=== PATIENT | male | born 1955 | race Caucasian/White ===

== ENCOUNTER → 2022-01-26 14:53 | Outpatient (BNVA) | payer OTHER, SELFPAY | PROVIDERS: Referring Provider Emergency Medicine Emergency Medical Services; Visit Provider Orthopaedic Surgery | DX: M25.552 Pain in left hip (principal); M16.12 Unilateral primary osteoarthritis, left hip | CPT/HCPCS: 73502 ==

== ENCOUNTER → 2022-03-10 08:30 | Outpatient (BNVA) | payer OTHER, SELFPAY | PROVIDERS: Referring Provider Emergency Medicine Emergency Medical Services; Visit Provider Anesthesiology Pain Medicine | DX: G89.29 Other chronic pain (principal); M48.062 Spinal stenosis, lumbar region with neurogenic claudication; M43.26 Fusion of spine, lumbar region; M51.16 Intervertebral disc disorders with radiculopathy, lumbar region; M79.604 Pain in right leg; M79.605 Pain in left leg; Z87.891 Personal history of nicotine dependence; Z79.891 Long term (current) use of opiate analgesic | CPT/HCPCS: 99205 ==

== ENCOUNTER → 2022-03-16 13:10 | Outpatient (BNVA) | payer OTHER, SELFPAY | PROVIDERS: PCP Emergency Medicine Emergency Medical Services; Visit Provider Anesthesiology Pain Medicine | DX: M48.062 Spinal stenosis, lumbar region with neurogenic claudication (principal); Z79.891 Long term (current) use of opiate analgesic; M47.816 Spondylosis without myelopathy or radiculopathy, lumbar region | CPT/HCPCS: 64493; 64494; 64495; J3490 ==

== ENCOUNTER 2022-03-19 07:34 | Day surgery (SDC) | payer OTHER, SELFPAY ==
[2022-03-17 12:23] VITALS: BMI 42.3
--- NOTE | 2022-03-19 07:58 | ANES.PREANE2 ---
Pre-Anesthetic Assessment Height/Weight: Height 1.88 m Weight 149.685 kg Preop Diagnosis: history of colon polyps Operation Date: 03/19/22 09:00 Proposed Procedures p Colonoscopy 76158/history of colon polyps Z89.010(Not Applicable) - Kilo Jarrell MD Familial anesthetic complications: none Was Beta Faisal taken within 24 hours: N/A Was Clonidine taken within 24 hours: N/A Last intake: > 8 hrs Social Tobacco (dips) and No alcohol Exam alert, oriented x 3, clear to auscultation bilaterally and regular rate & rhythm Airway Mallampati: Class IV Dentition: chipped Comments: Comments: full blankenship, small mouth opening Pulmonary Sleep Apnea CV/HEM Hypertension GI Gastroesophageal Reflux Disease Metabolic Diabetes Mellitus, Morbid Obesity and Thyroid Disease Anesthetic Plan ASA status: 3 Anesthesia: MAC Risk of > 500 ml blood loss (7ml/kg in children): No Medications/Allergies Home Medications Medication Instructions Recorded Confirmed Last Taken Type acetaminophen 325 mg capsule 325 mg PO QID PRN 03/10/22 03/17/22 Unknown History amlodipine 10 mg tablet 10 mg PO DAILY 03/10/22 03/17/22 Unknown History aspirin 81 mg chewable tablet 81 mg PO DAILY 03/10/22 03/17/22 Unknown History atorvastatin 80 mg tablet 80 mg PO DAILY 03/10/22 03/17/22 Unknown History cholecalciferol (vitamin D3) 75 75 mcg PO DAILY 03/10/22 03/17/22 Unknown History mcg (3,000 unit) tablet cyanocobalamin (vitamin B-12) 500 500 mcg PO DAILY 03/10/22 03/17/22 Unknown History mcg tablet folic acid 1 mg tablet 1 mg PO DAILY 03/10/22 03/17/22 Unknown History gabapentin 300 mg capsule 600 mg PO TID cap 03/10/22 03/17/22 Unknown History hydralazine 50 mg tablet 50 mg PO TID 03/10/22 03/17/22 Unknown History hydrochlorothiazide 50 mg tablet 50 mg PO DAILY 03/10/22 03/17/22 Unknown History hydrocortisone 2.5 % topical cream 1 applic TOPICAL TID PRN 03/10/22 03/17/22 Unknown History hydrophilic cream 1 applic TOPICAL DAILY PRN 03/10/22 03/17/22 Unknown History insulin NPH isoph U-100 human 100 25 unit SUBCUT QAM 03/10/22 03/17/22 Unknown History unit/mL (3 mL) subcutaneous pen (Novolin N Flexpen) levothyroxine 200 mcg capsule 200 mcg PO DAILY 03/10/22 03/17/22 Unknown History losartan 100 mg tablet 100 mg PO DAILY 03/10/22 03/17/22 Unknown History metformin 1,000 mg tablet 1,000 mg PO BID 03/10/22 03/17/22 Unknown History methocarbamol 500 mg tablet 500 mg PO TID 03/10/22 03/17/22 Unknown History omeprazole 20 mg capsule,delayed 20 mg PO DAILY 03/10/22 03/17/22 Unknown History release pioglitazone 30 mg tablet 30 mg PO DAILY 03/10/22 03/17/22 Unknown History tramadol 50 mg tablet 50 mg PO TID PRN #90 tab 03/10/22 03/17/22 Unknown Rx Allergies Allergy/AdvReac Type Severity Reaction Status Date / Time No Known Allergies Allergy Verified 03/16/22 13:33 [facility] Anesthesia Surgical History History of back surgery 2009 History of right hip replacement 2014 Family History Other Cancer Diabetes Denies family history of CAD (coronary artery disease) Dementia Chronic kidney disease (CKD) Stroke Social History Smoking and tobacco status: former smoker Alcohol intake: never Lives independently: Yes Household members: spouse, children and other Marital status: Data Anesthesia Cardiac Studies: No Data to Display
--- NOTE | 2022-03-19 08:20 | W.PM.OPSFHP ---
Same Day Surgery H&P Indication for Procedure/HPI DATE OF PROCEDURE: March 19, 2022 CHIEF COMPLAINT/INDICATIONFOR SURGICAL PROCEDURE: History of colon polyps PREOP DIAGNOSIS: history of colon polyps PLANNED PROCEDURE: Operation Date: 03/19/22 09:00 Proposed Procedures p Colonoscopy 39160/history of colon polyps Z89.010(Not Applicable) - Kilo Jarrell MD 01/04/22 This is a pleasant 66 years old gentleman had a colonoscopy about 10 years ago or so with questionable history of colon polyps.? Patient denies any bleeding per rectum or history of colon cancer.? Had a previous spine surgery back in 2009 which limit his activities and movability.? She denies unintentional weight loss. 03/19/2022 Patient comes today for surveillance colonoscopy ROS All systems have been reviewed negative except as for the above or per problem list. Medications/Allergies* Home Medications Medication Instructions Recorded Confirmed Type acetaminophen 325 mg capsule 325 mg PO QID PRN 03/10/22 03/19/22 History amlodipine 10 mg tablet 10 mg PO DAILY 03/10/22 03/19/22 History aspirin 81 mg chewable tablet 81 mg PO DAILY 03/10/22 03/19/22 History atorvastatin 80 mg tablet 80 mg PO DAILY 03/10/22 03/19/22 History cholecalciferol (vitamin D3) 75 75 mcg PO DAILY 03/10/22 03/19/22 History mcg (3,000 unit) tablet cyanocobalamin (vitamin B-12) 500 500 mcg PO DAILY 03/10/22 03/19/22 History mcg tablet folic acid 1 mg tablet 1 mg PO DAILY 03/10/22 03/19/22 History gabapentin 300 mg capsule 600 mg PO TID cap 03/10/22 03/19/22 History hydralazine 50 mg tablet 50 mg PO TID 03/10/22 03/19/22 History hydrochlorothiazide 50 mg tablet 50 mg PO DAILY 03/10/22 03/19/22 History hydrocortisone 2.5 % topical cream 1 applic TOPICAL TID PRN 03/10/22 03/19/22 History hydrophilic cream 1 applic TOPICAL DAILY PRN 03/10/22 03/19/22 History insulin NPH isoph U-100 human 100 25 unit SUBCUT QAM 03/10/22 03/19/22 History unit/mL (3 mL) subcutaneous pen (Novolin N Flexpen) levothyroxine 200 mcg capsule 200 mcg PO DAILY 03/10/22 03/19/22 History losartan 100 mg tablet 100 mg PO DAILY 03/10/22 03/19/22 History metformin 1,000 mg tablet 1,000 mg PO BID 03/10/22 03/19/22 History methocarbamol 500 mg tablet 500 mg PO TID 03/10/22 03/19/22 History omeprazole 20 mg capsule,delayed 20 mg PO DAILY 03/10/22 03/19/22 History release pioglitazone 30 mg tablet 30 mg PO DAILY 03/10/22 03/19/22 History Allergies/Adverse Reactions Allergy/AdvReac Type Severity Reaction Status Date / Time No Known Allergies Allergy Verified 03/19/22 08:21 Pertinent History/Comorbid Conditions* Surgical History (Updated 03/10/22 @ 11:38 by Abiel Knight MD) History of back surgery 2009 History of right hip replacement 2014 Family History (Updated 01/04/22 @ 15:06 by Marily De) Diabetes Cancer Denies family history of CAD (coronary artery disease) Dementia Chronic kidney disease (CKD) Stroke Social History Smoking and tobacco status: former smoker Alcohol intake: never Lives independently: Yes Household members: spouse, children and other Marital status: Pertinent Exam Findings alert, oriented x 3, regular rate & rhythm and procedure specific exam findings (Abdominal examination nontender nondistended soft) Recommendations Surgery/Procedure today ( Surveillance colonoscopy) Coding Level of Care Code Acute [employer] Manager for Sharon Sánchez
[2022-03-19] MEDS: sodium chloride 0.9% 1,000 ML 30 ML IV (08:24)
[2022-03-19 09:21] VITALS: BP 150/80; PULSE 70; RESP 18; TEMP 36.6; O2SAT 95
--- NOTE | 2022-03-19 15:56 | ANE.PACU2 ---
Inpatient post-anesthesia follow up: Airway intact: Yes Vital signs: Temperature 97.8 F Pulse Rate 70 Respiratory Rate 18 Blood Pressure 150/80 Pulse Oximetry 95 Oxygen Delivery Me thod Nasal Cannula Oxygen Flow Rate 3 Fraction of Inspir ed Oxygen Hydration adequate: Yes Nausea and vomiting: No Pain level: 1 Mental status: Baseline
== END 2022-03-19 09:52 | disposition home or self-care (01) ==
PROVIDERS: PCP Emergency Medicine Emergency Medical Services; Visit Provider Surgery
PROC: 0DJD8ZZ Inspection of Lower Intestinal Tract, Via Natural or Artificial Opening Endoscopic (ICD-10-PCS; CPT 45378; principal; 2022-03-19 09:00)
DX: Z12.11 Encounter for screening for malignant neoplasm of colon (principal); Z86.010 Personal history of colon polyps; D12.2 Benign neoplasm of ascending colon; D12.4 Benign neoplasm of descending colon; Z79.4 Long term (current) use of insulin; Z79.84 Long term (current) use of oral hypoglycemic drugs; Z83.3 Family history of diabetes mellitus; Z87.891 Personal history of nicotine dependence; K21.9 Gastro-esophageal reflux disease without esophagitis; I10 Essential (primary) hypertension; G47.30 Sleep apnea, unspecified; E11.9 Type 2 diabetes mellitus without complications; E66.01 Morbid (severe) obesity due to excess calories; Z68.41 Body mass index [BMI] 40.0-44.9, adult
CPT/HCPCS: 45380; 88305; J2704; J7030

== ENCOUNTER → 2022-03-29 12:07 | Outpatient (BNVA) | payer OTHER, SELFPAY | PROVIDERS: PCP Emergency Medicine Emergency Medical Services; Visit Provider Anesthesiology Pain Medicine | DX: M54.16 Radiculopathy, lumbar region (principal); M48.062 Spinal stenosis, lumbar region with neurogenic claudication; Z79.891 Long term (current) use of opiate analgesic; Z87.891 Personal history of nicotine dependence; M47.816 Spondylosis without myelopathy or radiculopathy, lumbar region | CPT/HCPCS: 64493; 64494; 64495; J3490 ==

== ENCOUNTER → 2022-04-13 09:29 | Outpatient (BNVA) | payer OTHER, SELFPAY | PROVIDERS: PCP Emergency Medicine Emergency Medical Services; Visit Provider Anesthesiology Pain Medicine | DX: M48.062 Spinal stenosis, lumbar region with neurogenic claudication (principal); M43.26 Fusion of spine, lumbar region; M51.16 Intervertebral disc disorders with radiculopathy, lumbar region; M79.604 Pain in right leg; M79.605 Pain in left leg; Z87.891 Personal history of nicotine dependence; Z79.891 Long term (current) use of opiate analgesic | CPT/HCPCS: 99214 ==

== ENCOUNTER → 2022-05-19 14:37 | Outpatient (BNVA) | payer OTHER, SELFPAY | PROVIDERS: PCP Emergency Medicine Emergency Medical Services; Visit Provider Anesthesiology Pain Medicine | DX: M48.062 Spinal stenosis, lumbar region with neurogenic claudication (principal); E11.9 Type 2 diabetes mellitus without complications; Z79.84 Long term (current) use of oral hypoglycemic drugs; Z79.4 Long term (current) use of insulin; Z79.891 Long term (current) use of opiate analgesic; Z87.891 Personal history of nicotine dependence; M47.816 Spondylosis without myelopathy or radiculopathy, lumbar region | CPT/HCPCS: 36416; 64635; 64636; 82962; J1030 ==

== ENCOUNTER → 2022-06-08 08:22 | Outpatient (BNVA) | payer OTHER, SELFPAY | PROVIDERS: PCP Emergency Medicine Emergency Medical Services; Referring Provider Emergency Medicine Emergency Medical Services; Visit Provider Podiatrist Foot & Ankle Surgery | DX: E11.8 Type 2 diabetes mellitus with unspecified complications (principal); E11.42 Type 2 diabetes mellitus with diabetic polyneuropathy; Z79.4 Long term (current) use of insulin; L85.3 Xerosis cutis; L60.3 Nail dystrophy; M21.41 Flat foot [pes planus] (acquired), right foot; M20.41 Other hammer toe(s) (acquired), right foot; M20.42 Other hammer toe(s) (acquired), left foot; M21.42 Flat foot [pes planus] (acquired), left foot | CPT/HCPCS: 99204 ==

== ENCOUNTER → 2022-06-16 14:12 | Outpatient (BNVA) | payer OTHER, SELFPAY | PROVIDERS: PCP Emergency Medicine Emergency Medical Services; Visit Provider Anesthesiology Pain Medicine | DX: Z01.812 Encounter for preprocedural laboratory examination (principal); M48.062 Spinal stenosis, lumbar region with neurogenic claudication; Z79.4 Long term (current) use of insulin; Z87.891 Personal history of nicotine dependence; Z79.891 Long term (current) use of opiate analgesic; M47.816 Spondylosis without myelopathy or radiculopathy, lumbar region; E11.9 Type 2 diabetes mellitus without complications | CPT/HCPCS: 36416; 64635; 64636; 82962; J1030 ==

== ENCOUNTER → 2022-07-06 10:48 | Outpatient (BNVA) | payer OTHER, SELFPAY | PROVIDERS: PCP Emergency Medicine Emergency Medical Services; Visit Provider Anesthesiology Pain Medicine | DX: M48.062 Spinal stenosis, lumbar region with neurogenic claudication (principal); M43.26 Fusion of spine, lumbar region; M51.16 Intervertebral disc disorders with radiculopathy, lumbar region; M79.604 Pain in right leg; M79.605 Pain in left leg; Z87.891 Personal history of nicotine dependence; Z79.891 Long term (current) use of opiate analgesic | CPT/HCPCS: 99213 ==

== ENCOUNTER → 2022-09-30 10:42 | Outpatient (BNVA) | payer OTHER, SELFPAY | PROVIDERS: PCP Emergency Medicine Emergency Medical Services; Visit Provider Anesthesiology Pain Medicine | DX: M48.062 Spinal stenosis, lumbar region with neurogenic claudication (principal); M51.16 Intervertebral disc disorders with radiculopathy, lumbar region; M43.26 Fusion of spine, lumbar region; M79.604 Pain in right leg; M79.605 Pain in left leg; Z87.891 Personal history of nicotine dependence | CPT/HCPCS: 99214 ==

== ENCOUNTER → 2022-10-05 08:26 | Outpatient (BNVA) | payer OTHER, SELFPAY | PROVIDERS: PCP Emergency Medicine Emergency Medical Services; Visit Provider Podiatrist Foot & Ankle Surgery | DX: E11.42 Type 2 diabetes mellitus with diabetic polyneuropathy (principal); M21.41 Flat foot [pes planus] (acquired), right foot; M20.41 Other hammer toe(s) (acquired), right foot; Z79.84 Long term (current) use of oral hypoglycemic drugs; Z79.4 Long term (current) use of insulin; M20.42 Other hammer toe(s) (acquired), left foot; M21.42 Flat foot [pes planus] (acquired), left foot | CPT/HCPCS: 11056; 11721 ==

== ENCOUNTER → 2023-01-18 10:28 | Outpatient (BNVA) | payer OTHER, SELFPAY | PROVIDERS: PCP Emergency Medicine Emergency Medical Services; Visit Provider Podiatrist Foot & Ankle Surgery | DX: E11.42 Type 2 diabetes mellitus with diabetic polyneuropathy (principal); L85.3 Xerosis cutis; L60.3 Nail dystrophy; M21.41 Flat foot [pes planus] (acquired), right foot; M21.42 Flat foot [pes planus] (acquired), left foot; M20.41 Other hammer toe(s) (acquired), right foot; M20.42 Other hammer toe(s) (acquired), left foot; Z79.4 Long term (current) use of insulin; Z79.84 Long term (current) use of oral hypoglycemic drugs | CPT/HCPCS: 11056; 11721 ==

== ENCOUNTER → 2023-01-27 09:35 | Outpatient (BNVA) | payer OTHER, SELFPAY | PROVIDERS: PCP Emergency Medicine Emergency Medical Services; Visit Provider Anesthesiology Pain Medicine | DX: M48.062 Spinal stenosis, lumbar region with neurogenic claudication (principal); M43.26 Fusion of spine, lumbar region; M51.16 Intervertebral disc disorders with radiculopathy, lumbar region; M25.552 Pain in left hip | CPT/HCPCS: 99213; 99214 ==

== ENCOUNTER → 2023-02-08 15:30 | Outpatient (BNVA) | payer OTHER, SELFPAY | PROVIDERS: PCP Emergency Medicine Emergency Medical Services; Visit Provider Orthopaedic Surgery | DX: M16.12 Unilateral primary osteoarthritis, left hip (principal) | CPT/HCPCS: 73502; 99213 ==

== ENCOUNTER → 2023-03-28 15:30 | Outpatient (BNVA) | payer OTHER, SELFPAY | PROVIDERS: PCP Emergency Medicine Emergency Medical Services; Visit Provider Internal Medicine Cardiovascular Disease | DX: R07.9 Chest pain, unspecified (principal); R06.02 Shortness of breath; I51.7 Cardiomegaly; Z98.890 Other specified postprocedural states; E78.00 Pure hypercholesterolemia, unspecified; I12.9 Hypertensive chronic kidney disease with stage 1 through stage 4 chronic kidney disease, or unspecified chronic kidney disease; N18.9 Chronic kidney disease, unspecified; E07.9 Disorder of thyroid, unspecified; E66.01 Morbid (severe) obesity due to excess calories; G47.33 Obstructive sleep apnea (adult) (pediatric); Z87.891 Personal history of nicotine dependence; Z68.42 Body mass index [BMI] 45.0-49.9, adult | CPT/HCPCS: 36415; 80048; 83880; 84443; 93005; 99204 ==

== ENCOUNTER 2023-04-11 14:33 | Outpatient (CLI) | payer OTHER, SELFPAY ==
--- NOTE | 2023-04-11 14:15 | USCV_ITS ---
Douglas Mahoney Age: 67 Gender: M : 1955 Exam Date: 04/11/2023 15:19 Ordering Phys: Jim Lozano MD ([email or web address]) Technologist: Angelito Knight Exam Location: [facility] Indication: CARDIOMEGALY BP: 132 / 68 HR: 55 Rhythm: Sinus Technical Quality: Adequate MEASUREMENTS (Male / Female) Normal Values 2D ECHO LVOT Diameter 2.5 cm LV Ejection Fraction MOD 2C 57.1 % LV Ejection Fraction 2C AL 56.9 % LA Diameter 4.3 cm LA Width 4.4 cm LA Height 5.3 cm RA Width 4.2 cm RA Height 5.7 cm Aorta at Sinotubular Diameter 2.9 cm M-MODE Aortic Annulus Diameter 3.1 cm LA Ao Ratio MM 1.5 MV E Point Septal Separation 1.1 cm DOPPLER AV Peak Velocity 126.0 cm/s LVOT Peak Velocity 110.0 cm/s AV Area Cont Eq vti 4.4 cm squared AV Area Cont Eq pk 4.3 cm squared MV Peak Velocity 114.0 cm/s MV Area PHT 4.8 cm squared Mitral E to A Ratio 0.9 MV E' Velocity 42.0 cm/s Mitral E to MV E' Ratio 9.4 Mitral E to LV E' Lateral Ratio 9.2 Mitral E to LV E' Septal Ratio 9.6 TR Peak Velocity 110.3 cm/s TR Peak Gradient 4.9 mmHg TR Mean Velocity 82.3 cm/s TR Mean Gradient 2.8 mmHg TR Velocity Time Integral 24.4 cm Right Atrial Pressure 8.0 mmHg Pulmonary Artery Systolic Pressu 12.9 mmHg PV Peak Velocity 111.0 cm/s RV Acceleration Time 0.2 s RV Ejection Time 0.4 s RV AcT/ET 0.5 FINDINGS Left Ventricle Normal left ventricular size and systolic function, EF 58 %. No regional wall motion abnormalities. Right Ventricle The right ventricle is normal in size and function. Right Atrium The right atrium is normal in size. Left Atrium The left atrium is normal in size. Mitral Valve No gross abnormalities noted Aortic Valve Thickened aortic valve. Tricuspid Valve Tricuspid valve not well visualized. Pulmonic Valve Pulmonic valve not well visualized. Pericardium Normal pericardium without effusion. Aorta Normal ascending aorta dimension. IVC The inferior vena cava appears normal. CONCLUSIONS Normal left ventricular size and systolic function, EF 58 %. No regional wall motion abnormalities. (Echo contrast - Optison was used to delineate the endocardium and to estimate the LV ejection fraction) Thickened aortic valve. There is no pericardial effusion. Technically difficult study because of the poor ultrasonic window. Dr Jim Lozano MD [facility] (Electronically Signed) Final Date: 11 Apr 2023 18:59 S
[2023-04-11] MEDS: perflutren protein-a microsphr 0.22 mg/mL SDV 3 mL IV (16:15)
== END 2023-04-11 14:34 | disposition home or self-care (01) ==
LOC: RAD 14:45
PROVIDERS: PCP Emergency Medicine Emergency Medical Services; Visit Provider Internal Medicine Cardiovascular Disease
DX: I51.7 Cardiomegaly (principal); R06.09 Other forms of dyspnea; I35.8 Other nonrheumatic aortic valve disorders
CPT/HCPCS: 36415; 80048; 83880; 84443; 99204; C8929; Q9956

== ENCOUNTER → 2023-04-21 11:16 | Outpatient (BNVA) | payer OTHER, SELFPAY | PROVIDERS: PCP Emergency Medicine Emergency Medical Services; Visit Provider Podiatrist Foot & Ankle Surgery | DX: E11.42 Type 2 diabetes mellitus with diabetic polyneuropathy (principal); L85.3 Xerosis cutis; L60.3 Nail dystrophy; M21.42 Flat foot [pes planus] (acquired), left foot; M21.41 Flat foot [pes planus] (acquired), right foot; M20.42 Other hammer toe(s) (acquired), left foot; M20.41 Other hammer toe(s) (acquired), right foot; Z79.84 Long term (current) use of oral hypoglycemic drugs; Z79.4 Long term (current) use of insulin; R60.0 Localized edema | CPT/HCPCS: 11056; 11721; 99213 ==

== ENCOUNTER → 2023-06-27 13:39 | Outpatient (BNVA) | payer OTHER, SELFPAY | PROVIDERS: PCP Emergency Medicine Emergency Medical Services; Visit Provider Internal Medicine Cardiovascular Disease | DX: G47.33 Obstructive sleep apnea (adult) (pediatric) (principal); E66.01 Morbid (severe) obesity due to excess calories; Z68.42 Body mass index [BMI] 45.0-49.9, adult; E78.00 Pure hypercholesterolemia, unspecified; I13.10 Hypertensive heart and chronic kidney disease without heart failure, with stage 1 through stage 4 chronic kidney disease, or unspecified chronic kidney disease; E11.22 Type 2 diabetes mellitus with diabetic chronic kidney disease; N18.9 Chronic kidney disease, unspecified; Z87.891 Personal history of nicotine dependence; Z79.4 Long term (current) use of insulin | CPT/HCPCS: 99213 ==

== ENCOUNTER → 2023-06-29 12:42 | Outpatient (BNVA) | payer OTHER, SELFPAY | PROVIDERS: PCP Emergency Medicine Emergency Medical Services; Visit Provider Podiatrist Foot & Ankle Surgery | DX: E11.8 Type 2 diabetes mellitus with unspecified complications (principal); E11.42 Type 2 diabetes mellitus with diabetic polyneuropathy; L85.3 Xerosis cutis; L60.3 Nail dystrophy; R60.0 Localized edema; L84 Corns and callosities; M21.42 Flat foot [pes planus] (acquired), left foot; M21.41 Flat foot [pes planus] (acquired), right foot; M20.42 Other hammer toe(s) (acquired), left foot; M20.41 Other hammer toe(s) (acquired), right foot; Z79.84 Long term (current) use of oral hypoglycemic drugs; Z79.4 Long term (current) use of insulin | CPT/HCPCS: 11056; 11721 ==

== ENCOUNTER → 2023-07-18 14:42 | Outpatient (BNVA) | payer OTHER, SELFPAY | PROVIDERS: PCP Emergency Medicine Emergency Medical Services; Visit Provider Specialist | DX: M16.12 Unilateral primary osteoarthritis, left hip; E66.01 Morbid (severe) obesity due to excess calories; Z68.42 Body mass index [BMI] 45.0-49.9, adult; Z96.641 Presence of right artificial hip joint | CPT/HCPCS: 73502; 99204 ==

== ENCOUNTER → 2023-07-28 11:00 | Outpatient (BNVA) | payer OTHER, SELFPAY | PROVIDERS: PCP Emergency Medicine Emergency Medical Services; Visit Provider Anesthesiology Pain Medicine | DX: M48.062 Spinal stenosis, lumbar region with neurogenic claudication (principal); M43.26 Fusion of spine, lumbar region; M51.16 Intervertebral disc disorders with radiculopathy, lumbar region; M16.12 Unilateral primary osteoarthritis, left hip | CPT/HCPCS: 99214 ==

== ENCOUNTER → 2023-08-16 14:00 | Outpatient (BNVA) | payer OTHER, SELFPAY | PROVIDERS: PCP Emergency Medicine Emergency Medical Services; Visit Provider Anesthesiology Pain Medicine | DX: M54.16 Radiculopathy, lumbar region (principal); M48.062 Spinal stenosis, lumbar region with neurogenic claudication | CPT/HCPCS: 64483; 64484; J1100; J3490 ==

== ENCOUNTER → 2023-09-07 14:45 | Outpatient (BNVA) | payer OTHER, SELFPAY | PROVIDERS: PCP Emergency Medicine Emergency Medical Services; Visit Provider Podiatrist Foot & Ankle Surgery | DX: R60.0 Localized edema (principal); L84 Corns and callosities; E11.8 Type 2 diabetes mellitus with unspecified complications; E11.42 Type 2 diabetes mellitus with diabetic polyneuropathy; L60.3 Nail dystrophy; Z79.4 Long term (current) use of insulin; Z79.84 Long term (current) use of oral hypoglycemic drugs | CPT/HCPCS: 11055; 11721 ==

== ENCOUNTER → 2023-09-19 13:09 | Outpatient (BNVA) | payer OTHER, SELFPAY | PROVIDERS: PCP Emergency Medicine Emergency Medical Services; Visit Provider Anesthesiology Pain Medicine | DX: M16.12 Unilateral primary osteoarthritis, left hip | CPT/HCPCS: 20610; 77002; J1030; J3490 ==

== ENCOUNTER → 2023-10-20 08:38 | Outpatient (BNVA) | payer OTHER, SELFPAY | PROVIDERS: PCP Emergency Medicine Emergency Medical Services; Visit Provider Anesthesiology Pain Medicine | DX: M48.062 Spinal stenosis, lumbar region with neurogenic claudication; M43.26 Fusion of spine, lumbar region; M51.16 Intervertebral disc disorders with radiculopathy, lumbar region; M16.12 Unilateral primary osteoarthritis, left hip | CPT/HCPCS: 99214 ==

== ENCOUNTER → 2023-12-13 08:38 | Outpatient (BNVA) | payer OTHER, SELFPAY | PROVIDERS: PCP Emergency Medicine Emergency Medical Services; Visit Provider Anesthesiology Pain Medicine | DX: M48.062 Spinal stenosis, lumbar region with neurogenic claudication (principal); M43.26 Fusion of spine, lumbar region; M51.16 Intervertebral disc disorders with radiculopathy, lumbar region; M16.12 Unilateral primary osteoarthritis, left hip | CPT/HCPCS: 99214 ==

== ENCOUNTER → 2023-12-21 10:17 | Outpatient (BNVA) | payer OTHER, SELFPAY | PROVIDERS: PCP Emergency Medicine Emergency Medical Services; Visit Provider Podiatrist Foot & Ankle Surgery | DX: R60.0 Localized edema (principal); L84 Corns and callosities; E11.42 Type 2 diabetes mellitus with diabetic polyneuropathy; L60.3 Nail dystrophy; Z79.4 Long term (current) use of insulin; Z79.84 Long term (current) use of oral hypoglycemic drugs | CPT/HCPCS: 11056; 11721 ==

== ENCOUNTER → 2024-01-19 10:47 | Outpatient (BNVA) | payer OTHER, SELFPAY | PROVIDERS: PCP Emergency Medicine Emergency Medical Services; Visit Provider Anesthesiology Pain Medicine | DX: M48.062 Spinal stenosis, lumbar region with neurogenic claudication (principal); M51.16 Intervertebral disc disorders with radiculopathy, lumbar region; M43.26 Fusion of spine, lumbar region; M16.12 Unilateral primary osteoarthritis, left hip | CPT/HCPCS: 99214 ==

== ENCOUNTER → 2024-03-06 10:13 | Outpatient (BNVA) | payer OTHER, SELFPAY | PROVIDERS: PCP Emergency Medicine Emergency Medical Services; Visit Provider Podiatrist Foot & Ankle Surgery | DX: R60.0 Localized edema (principal); L84 Corns and callosities; E11.42 Type 2 diabetes mellitus with diabetic polyneuropathy; L60.3 Nail dystrophy; M21.621 Bunionette of right foot; M21.622 Bunionette of left foot; M21.41 Flat foot [pes planus] (acquired), right foot; M21.42 Flat foot [pes planus] (acquired), left foot; Z79.84 Long term (current) use of oral hypoglycemic drugs; Z79.4 Long term (current) use of insulin | CPT/HCPCS: 11056; 11721 ==

== ENCOUNTER → 2024-03-13 09:40 | Outpatient (BNVA) | payer OTHER, SELFPAY | PROVIDERS: PCP Emergency Medicine Emergency Medical Services; Visit Provider Anesthesiology Pain Medicine | DX: M48.062 Spinal stenosis, lumbar region with neurogenic claudication (principal); F11.90 Opioid use, unspecified, uncomplicated; M51.16 Intervertebral disc disorders with radiculopathy, lumbar region; M43.26 Fusion of spine, lumbar region; M16.12 Unilateral primary osteoarthritis, left hip | CPT/HCPCS: 99214 ==

== ENCOUNTER → 2024-04-18 09:41 | Outpatient (BNVA) | payer OTHER, SELFPAY | PROVIDERS: PCP Emergency Medicine Emergency Medical Services; Visit Provider Anesthesiology Pain Medicine | DX: M48.062 Spinal stenosis, lumbar region with neurogenic claudication (principal); M51.16 Intervertebral disc disorders with radiculopathy, lumbar region; M43.26 Fusion of spine, lumbar region; M16.12 Unilateral primary osteoarthritis, left hip | CPT/HCPCS: 99214 ==

== ENCOUNTER → 2024-04-25 13:42 | Outpatient (BNVA) | payer OTHER, SELFPAY | PROVIDERS: PCP Emergency Medicine Emergency Medical Services; Referring Provider Emergency Medicine Emergency Medical Services; Visit Provider Internal Medicine Cardiovascular Disease | DX: R06.02 Shortness of breath (principal); I10 Essential (primary) hypertension; E78.00 Pure hypercholesterolemia, unspecified; E11.9 Type 2 diabetes mellitus without complications; E07.9 Disorder of thyroid, unspecified; E66.01 Morbid (severe) obesity due to excess calories; Z68.41 Body mass index [BMI] 40.0-44.9, adult; R60.0 Localized edema; Z87.891 Personal history of nicotine dependence; Z79.4 Long term (current) use of insulin | CPT/HCPCS: 99214 ==

== ENCOUNTER 2024-05-31 07:57 | Outpatient (CLI) | payer OTHER, SELFPAY ==
--- NOTE | 2024-05-31 08:29 | ECG_ITS ---
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
--- NOTE | 2024-05-31 08:29 | NMCV_ITS ---
NM abdias perf SPECT r/s* [id number] Douglas Mahoney Age: 68 Gender: M : 1955 Exam Date: 05/31/2024 08:29 Ordering Phys: Jim Lozano MD ([email or web address]) Technologist: STEVEN Gardner Exam Location: [facility] Indications: CP, back pain, SOB STRESS TEST Please see separate stress [facility] for full findings IMAGE PROTOCOL Rest/Stress 1 Lexiscan Day Radiopharmaceutical Dose (mCi) Administration Site Administered by Rest: Tc-99m 10.7 IV STEVEN Gardenr Sestamibi Stress:Tc-99m 33.0 IV STEVEN Gardner Sestamibi Rest: 31-May-2024 60 Discovery 630 Stress: 31-May-2024 30 Discovery 630 0.4mg Lexiscan. Supine position only as patient was unable to lay prone. SPECT RESULTS Technical Quality: Good Raw Data Analysis: Soft tissue attenuation, obesity Image Corrections: No attenuation or motion correction applied Summed Stress Score: 0 Summed Rest Score: 1 Summed Difference Score: 0 PERFUSION FINDINGS Fairly uniform myocardial tracer uptake with no significant perfusion abnormalities FUNCTIONAL RESULTS (calculated via Gated SPECT) Stress Image LV EF (%): 54 Stress EDV (mL):196 TID: 1.06 Stress ESV (mL):90 FUNCTIONAL FINDINGS: Segmental wall motion analysis revealing no gross wall motion abnormalities IMPRESSIONS 1. Myocardial perfusion imaging revealing you uniform myocardial tracer uptake with no significant perfusion normalities 2. Normal LV ejection fraction of 54%. 3. LV wall motion analysis revealing no gross wall motion abnormalities. 4. Mildly dilated LV cavity with an end-systolic volume of 90 ml. Low probability for coronary ischemia, based on the above findings No similar previous studies are available for comparison Dr Jim Lozano MD [facility] (Electronically Signed) Final Date: 31 May 2024 18:00 S
[2024-05-31 08:30] VITALS: BMI 44.9
[2024-05-31] MEDS: regadenoson 0.4 Mg/5 ml Syringe IVP (10:01)
[2024-05-31 10:23] VITALS: BP 139/51; PULSE 71
== END 2024-05-31 07:58 | disposition home or self-care (01) ==
LOC: CDL 07:59
PROVIDERS: PCP Emergency Medicine Emergency Medical Services; Visit Provider Internal Medicine Cardiovascular Disease
DX: R06.02 Shortness of breath (principal); R94.39 Abnormal result of other cardiovascular function study
CPT/HCPCS: 36415; 78452; 93017; 96374; A9500; J2785

== ENCOUNTER → 2024-06-05 10:48 | Outpatient (BNVA) | payer OTHER, SELFPAY | PROVIDERS: PCP Emergency Medicine Emergency Medical Services; Visit Provider Podiatrist Foot & Ankle Surgery | DX: R60.0 Localized edema (principal); L84 Corns and callosities; E11.42 Type 2 diabetes mellitus with diabetic polyneuropathy; L60.3 Nail dystrophy; Z79.84 Long term (current) use of oral hypoglycemic drugs; Z79.4 Long term (current) use of insulin | CPT/HCPCS: 11056; 11721 ==

== ENCOUNTER 2024-08-02 16:08 | Emergency (ER) | payer OTHER, MEDICARE, SELFPAY ==
[2024-08-02] VITALS (8 sets, daily range): BP systolic 85–134; BP diastolic 47–65; PULSE 60–116; RESP 16–18; TEMP 36.7; O2SAT 97–98
[2024-08-02 16:36] LABS: Basophils % 0.6 %; Eosinophils # 0.2 10^3/uL (0.0-0.8); Eosinophils % 3.8 %; Hematocrit 32.9 % (37-53); Lymphocytes # 0.7 10^3/uL (0.8-4.8); Lymphocytes % 13.5 %; Mean Corpuscular HGB Conc 32.8 g/dL (30-55); Mean Corpuscular Hemoglobin 29.6 pg (27-33); Mean Corpuscular Volume 90.1 fl (82-101); Monocytes # 0.4 10^3/uL (0.2-0.9); Monocytes % 8.5 %; Neutrophils # 3.69 10^3/uL (1.8-7.7); Neutrophils % 73.4 %; Nucleated Red Blood Cells % 0 %; Platelet Count 197 10^3/cmm (157-399); Red Blood Count 3.65 10^6/uL (3.85-5.65); Red Cell Distribution Width 14.9 % (12.1-15.1); White Blood Count 5.03 10^3/uL (3.29-11.43)
[2024-08-02 16:54] LABS: Alanine Aminotransferase 19 U/L (0-41); Albumin Level 4.2 g/dL (3.5-5.2); Alkaline Phosphatase 76 U/L (40-130); Anion Gap 20.4 (5-19); Aspartate Amino Transferase 28 U/L (0-40); Blood Urea Nitrogen 29 mg/dL (8-23); Calcium 9.5 mg/dL (8.5-10.5); Carbon Dioxide 24 mmol/L (22-29); Chloride 100 mmol/L (98-107); Creatinine Clr Calc Pharmacy 52.3292; Globulin 2.4 g/dL (1.3-4.6); Glomerular Filtration Rate 33.4 mL/min (90-130); Glucose 168 mg/dL (65-115); Lipase 37 U/L (13-60); Osmolality Calculated 300 mOsm/kg (285-295); Potassium 4.4 mmol/L (3.5-5.1); Sodium 140 mmol/L (136-145); Total Bilirubin 0.3 mg/dL (0.15-1.2); Total Protein 6.6 g/dL (6.6-8.7)
[2024-08-02 17:18] LABS: Ketone (Acetest) Serum Negative (Negative)
--- NOTE | 2024-08-02 17:23 | ED_ITS ---
Documented by User: Jadiel Merritt DO 08/02/24 18:02 HPI - Nausea/Vomiting/Diarrhea 2 General: Chief complaint: Nausea/Vomiting/Diarrhea Stated complaint: low blood pressure, nausea, diareaha Time Seen by Provider: 08/02/24 17:19 History of Present Illness: 60-year-old male presents emergency room complaining of lightheadedness and dizziness. He has had some chronic diarrhea over the last week as well. Last month he had been on Ozempic but then stopped the medication on July 2 weeks still continues to feel poorly lightheaded and dizzy. He was at pain management his blood pressure was as low as 79/40 on arrival here he is 85/50. He denies any chest pain or shortness of breath. Associated symtoms: Reports dizziness; Denies chest pain or dysuria Related Data Home Medications Medication Instructions Recorded Confirmed acetaminophen 325 mg capsule 325 mg PO QID PRN Pain 03/10/22 06/05/24 amlodipine 10 mg tablet 10 mg PO DAILY 03/10/22 06/05/24 aspirin 81 mg chewable tablet 81 mg PO DAILY 03/10/22 06/05/24 atorvastatin 80 mg tablet 80 mg PO DAILY 03/10/22 06/05/24 cholecalciferol (vitamin D3) 75 75 mcg PO DAILY 03/10/22 06/05/24 mcg (3,000 unit) tablet cyanocobalamin (vitamin B-12) 500 500 mcg PO DAILY 03/10/22 06/05/24 mcg tablet gabapentin 300 mg capsule 600 mg PO TID 03/10/22 06/05/24 hydrocortisone 2.5 % topical cream 1 applic topical TID PRN unknown 03/10/22 06/05/24 hydrophilic cream 1 applic topical DAILY PRN unknown 03/10/22 06/05/24 levothyroxine 200 mcg capsule 200 mcg PO DAILY 03/10/22 06/05/24 losartan 100 mg tablet 100 mg PO DAILY 03/10/22 06/05/24 metformin 1,000 mg tablet 1,000 mg PO BID 03/10/22 06/05/24 methocarbamol 500 mg tablet 500 mg PO TID 03/10/22 06/05/24 omeprazole 20 mg capsule,delayed 20 mg PO DAILY 03/10/22 06/05/24 release pioglitazone 30 mg tablet 30 mg PO DAILY 03/10/22 06/05/24 bacitracin 500 unit/gram topical 1 applic topical TID 09/30/22 06/05/24 ointment hydrocodone 5 mg-acetaminophen 325 1 tab PO Q6H PRN 09/30/22 06/05/24 mg tablet insulin NPH isoph U-100 human 100 75 unit SUBCUT BID 03/28/23 06/05/24 unit/mL (3 mL) subcutaneous pen (Novolin N FlexPen) hydrochlorothiazide 50 mg tablet 100 mg PO TID 06/27/23 06/05/24 venlafaxine 75 mg tablet 75 mg PO DAILY 06/27/23 06/05/24 clonidine HCl 0.1 mg tablet 0.05 mg PO BID 04/25/24 06/05/24 Previous Rx's Medication Instructions Recorded Diabetic shoes with inserts #1 ea 10/05/22 Diabetic Shoes with 3 pairs of #1 ea 02/09/23 Inserts ammonium lactate 12 % topical cream See Rx Instructions .Route 04/19/23 .COMPLEX #140 grams 6 pairs of compression socks #1 ea 04/21/23 Diabetic shoes #1 ea 03/06/24 tramadol 50 mg tablet 50 mg PO TID PRN pain #90 tabs 04/18/24 Allergies Allergy/AdvReac Type Severity Reaction Status Date / Time No Known Allergies Allergy Verified 08/02/24 16:21 Review of Systems 2 Const: Denies: fever(s) or chills Card: Denies: chest pain Resp: Denies: dyspnea GI: Denies: abdominal pain : Denies: dysuria, urinary frequency or urinary urgency Musc: Denies: neck pain or back pain Skin/Breast: Denies: rash Neuro: Reports: dizziness PFSH ED 2 PFSH: Medical History Thyroid condition Diabetes High cholesterol Hypertension History of colon polyps Surgical History History of esophagogastroduodenoscopy (EGD) History of back surgery 2009 History of right hip replacement 2015 Family History Other Cancer Diabetes Denies family history of CAD (coronary artery disease) Dementia Chronic kidney disease (CKD) Stroke Social History Smoking and tobacco/nicotine status: former use of tobacco/nicotine Second hand smoke exposure: No Alcohol intake: current Alcohol intake frequency: holidays/special occasions only Alcohol type: beer Substance/Drug Use: never Lives independently: Yes Household members: spouse, children and other Marital status: Physical Exam 2 Const: GENERAL APPEARANCE: cooperative ORIENTATION/CONSCIOUSNESS: Yes awake, Yes oriented to person, Yes oriented to place and Yes oriented to time HENMT: COMMON NORMALS: normocephalic, atraumatic and hearing grossly normal bilaterally HEAD & SCALP: normocephalic and atraumatic Resp: COMMON NORMALS: normal respiratory effort, No retractions, No use of accessory muscles and clear to auscultation bilaterally AUSCULTATION: clear to auscultation bilaterally Cardio: COMMON NORMALS: regular rate, regular rhythm and No murmurs present (Cardio) RATE: regular rate RHYTHM: regular rhythm GI: COMMON NORMALS: Soft to palpation and No hepatosplenomegaly present A USCULTATION: Yes normoactive bowel sounds PALPATION: Yes Soft to palpation, No Tenderness to palpation present (GI), No Guarding due to palpation present (GI) and Yes No hepatosplenomegaly present Extremity: COMMON NORMALS: normal to inspection, capillary refill normal, no clubbing, cyanosis or edema, no calf tenderness and no pedal edema Neuro: SENSORIUM/ORIENTATION: Yes oriented to person, Yes oriented to place and Yes oriented to time Skin: COMMON NORMALS: no rashes or lesions noted GENERAL SKIN EXAM: no rashes or lesions noted Course 2 Vital Signs: Vital signs: Vital Signs Temperature 98.0 F 08/02/24 16:14 Pulse Rate 65 08/02/24 18:30 Respiratory Rate 18 08/02/24 18:30 Blood Pressure 134/65 08/02/24 18:30 Pulse Oximetry 98 08/02/24 18:30 Oxygen Delivery Me thod Room Air 08/02/24 18:00 MDM - Nausea/Vomiting/Diarrhea Medical Decision Making Care signed out to Dr. Sharma at change of shift. See final notes for diagnosis and disposition. Lab Data 08/02/24 16:32 08/02/24 16:32 Laboratory Results WBC 5.03 10^3/uL (3.29-11.43) 08/02/24 16: RBC 3.65 10^6/uL (3.85-5.65) L 08/02/24 16:32 Hgb 10.80 g/dL (11.27-16.99) L 08/02/24 16:32 Hct 32.9 % (37-53) L 08/02/24 16: MCV 90.1 fl (82-101) 08/02/24 16: MCH 29.6 pg (27-33) 08/02/24 16: MCHC 32.8 g/dL (30-55) 08/02/24 16: RDW 14.9 % (12.1-15.1) 08/02/24 16: Plt Count 197 10^3/cmm (157-399) 08/02/24 16: MPV 12.0 fL (7.4-10.4) H 08/02/24 16:32 Neut % (Auto) 73.4 % 08/02/24 16:32 Lymph % (Auto) 13.5 % 08/02/24 16:32 [place] % (Auto) 8.5 % 08/02/24 16:32 Eos % (Auto) 3.8 % 08/02/24 16:32 Baso % (Auto) 0.6 % 08/02/24 16: Neut # (Auto) 3.69 10^3/uL (1.8-7.7) 08/02/24 16:32 Lymph # (Auto) 0.7 10^3/uL (0.8-4.8) L 08/02/24 16:32 [place] # (Auto) 0.4 10^3/uL (0.2-0.9) 08/02/24 16:32 Eos # (Auto) 0.2 10^3/uL (0.0-0.8) 08/02/24 16: Baso # (Auto) 0.0 10^3/uL (0.0-0.1) 08/02/24 16:32 Nucleated RBC % (auto) 0 % 08/02/24 16: Nucleated RBCs # 0.0 /100WBC 08/02/24 16:32 Sodium 140 mmol/L (136-145) 08/02/24 16:32 Potassium 4.4 mmol/L (3.5-5.1) 08/02/24 16:32 Chloride 100 mmol/L (98-107) 08/02/24 16:32 Carbon Dioxide 24 mmol/L (22-29) 08/02/24 16:32 Anion Gap 20.4 (5-19) H 08/02/24 16:32 BUN 29 mg/dL (8-23) H 08/02/24 16:32 Creatinine 2.0 mg/dL (0.7-1.2) H 08/02/24 16:32 GFR Calculation 33.4 mL/min (90-130) L 08/02/24 16:32 Glucose 168 mg/dL (65-115) H 08/02/24 16:32 Calculated Osmolality 300 mOsm/kg (285-295) H 08/02/24 16:32 Calcium 9.5 mg/dL (8.5-10.5) 08/02/24 16:32 Total Bilirubin 0.3 mg/dL (0.15-1.2) 08/02/24 16:32 AST 28 U/L (0-40) 08/02/24 16:32 ALT 19 U/L (0-41) 08/02/24 16:32 Alkaline Phosphatase 76 U/L (40-130) 08/02/24 16:32 Total Protein 6.6 g/dL (6.6-8.7) 08/02/24 16:32 Albumin 4.2 g/dL (3.5-5.2) 08/02/24 16:32 Globulin 2.4 g/dL (1.3-4.6) 08/02/24 16:32 Lipase 37 U/L (13-60) 08/02/24 16:32 Serum Ketones Negative (Negative) 08/02/24 16:08 No radiology studies performed this visit Discharge Plan Discharge Patient Disposition: Home Clinical Impression: Dehydration, Diarrhea, Acute renal insufficiency, Hypotension Condition: Stable Prescriptions: No Action methylprednisolone acetate [Depo-Medrol] 40 mg/mL suspension 40 mg Infiltration ONCE Qty: 1 0RF (DME) Diabetic shoes with inserts See Rx Instructions .Route .MEDSUPPLY Qty: 1 0RF Rx Instructions: As directed hydrocodone-acetaminophen 5-325 mg tablet 1 tab PO Q6H PRN bacitracin 500 unit/gram ointment 1 applic topical TID clonidine HCl 0.1 mg tablet 0.05 mg PO BID acetaminophen 325 mg capsule 325 mg PO QID PRN (Reason: Pain) amlodipine 10 mg tablet 10 mg PO DAILY aspirin 81 mg tablet,chewable 81 mg PO DAILY Hold Instructions: Resume on 03/24/22. atorvastatin 80 mg tablet 80 mg PO DAILY cholecalciferol (vitamin D3) 75 mcg (3,000 unit) tablet 75 mcg PO DAILY cyanocobalamin (vitamin B-12) 500 mcg tablet 500 mcg PO DAILY gabapentin 300 mg capsule 600 mg PO TID hydrocortisone 2.5 % cream 1 applic topical TID PRN (Reason: unknown) hydrophilic cream Cream 1 applic topical DAILY PRN (Reason: unknown) levothyroxine 200 mcg capsule 200 mcg PO DAILY losartan 100 mg tablet 100 mg PO DAILY metformin 1,000 mg tablet 1,000 mg PO BID methocarbamol 500 mg tablet 500 mg PO TID omeprazole 20 mg capsule,delayed release(DR/EC) 20 mg PO DAILY pioglitazone 30 mg tablet 30 mg PO DAILY Novolin N FlexPen 100 unit/mL (3 mL) insulin pen 75 unit SUBCUT BID hydrochlorothiazide 50 mg tablet 100 mg PO TID bupivacaine (PF) 0.25 % (2.5 mg/mL) solution 1 ml intra-articular ONCE Qty: 1 0RF methylprednisolone acetate [Depo-Medrol] 40 mg/mL suspension 40 mg Infiltration ONCE Qty: 1 0RF lidocaine (PF) 20 mg/mL (2 %) solution 20 mg Infiltration ONCE Qty: 1 0RF (DME) 6 pairs of compression socks See Rx Instructions .Route .MEDSUPPLY Qty: 1 0RF Rx Instructions: [facility] venlafaxine 75 mg tablet 75 mg PO DAILY (DME) Diabetic shoes See Rx Instructions .ROUTE .MEDSUPPLY Qty: 1 0RF Rx Instructions: With 3 pairs of inserts tramadol 50 mg tablet 50 mg PO TID PRN (Reason: pain) Qty: 90 2RF Rx Instructions: Not to be used with other opioids, benzodiazepines, or alcohol (DME) Diabetic Shoes with 3 pairs of Custom Inserts See Rx Instructions .Route .MEDSUPPLY Qty: 1 0RF Rx Instructions: As directed by [facility]- [place] patient ammonium lactate 12 % cream See Rx Instructions .ROUTE .COMPLEX Qty: 140 5RF Dose Instruction: APPLY TO AFFECTED AREA(S) ONCE A DAY FOR DRY SKIN. EXTERNAL USE ONLY. DO NOT APPLY TO RED, ITCHY, OR SORE SKIN. Rx Instructions: APPLY TO AFFECTED AREA(S) ONCE A DAY FOR DRY SKIN. EXTERNAL USE ONLY. DO NOT APPLY TO RED, ITCHY, OR SORE SKIN. Discharge Orders: Discharge ED (Routine); Ordered 08/02/24 Ordered By: Echo Sharma Referrals: Flako Carreno, [Primary Care Provider] - Discharge Diet: Usual diet Discharge Activity: Increase activity as tolerated Patient Instructions: Dehydration (ED) Activity Restrictions/Additional Instructions: Thank you for choosing [facility] for your healthcare needs today. Please realize this is an emergency room and that we are providing you with a medical screening exam and this may not be complete and all inclusive of all the testing and or work up that you may need to determine your ailment or severity of your illness. You have been screened and evaluated and felt safe for discharge. Health conditions do change or evolve sometimes and as such it is important that you follow up with your Primary Doctor to be re checked, 3-5 days is a general good time frame for follow up. You are always welcome to return to the ED for re assessment if your symptoms are worsening or you have new concerns Coding Level of Care Code ED Tar Distillation Supervisor for Chg Fwd Documented by User: Echo Sharma MD 08/02/24 19:41 HPI - Nausea/Vomiting/Diarrhea 2 General: Chief complaint: Nausea/Vomiting/Diarrhea Stated complaint: low blood pressure, nausea, diareaha Time Seen by Provider: 08/02/24 17:19 Related Data Home Medications Medication Instructions Recorded Confirmed acetaminophen 325 mg capsule 325 mg PO QID PRN Pain 03/10/22 06/05/24 amlodipine 10 mg tablet 10 mg PO DAILY 03/10/22 06/05/24 aspirin 81 mg chewable tablet 81 mg PO DAILY 03/10/22 06/05/24 atorvastatin 80 mg tablet 80 mg PO DAILY 03/10/22 06/05/24 cholecalciferol (vitamin D3) 75 75 mcg PO DAILY 03/10/22 06/05/24 mcg (3,000 unit) tablet cyanocobalamin (vitamin B-12) 500 500 mcg PO DAILY 03/10/22 06/05/24 mcg tablet gabapentin 300 mg capsule 600 mg PO TID 03/10/22 06/05/24 hydrocortisone 2.5 % topical cream 1 applic topical TID PRN unknown 03/10/22 06/05/24 hydrophilic cream 1 applic topical DAILY PRN unknown 03/10/22 06/05/24 levothyroxine 200 mcg capsule 200 mcg PO DAILY 03/10/22 06/05/24 losartan 100 mg tablet 100 mg PO DAILY 03/10/22 06/05/24 metformin 1,000 mg tablet 1,000 mg PO BID 03/10/22 06/05/24 methocarbamol 500 mg tablet 500 mg PO TID 03/10/22 06/05/24 omeprazole 20 mg capsule,delayed 20 mg PO DAILY 03/10/22 06/05/24 release pioglitazone 30 mg tablet 30 mg PO DAILY 03/10/22 06/05/24 bacitracin 500 unit/gram topical 1 applic topical TID 09/30/22 06/05/24 ointment hydrocodone 5 mg-acetaminophen 325 1 tab PO Q6H PRN 09/30/22 06/05/24 mg tablet insulin NPH isoph U-100 human 100 75 unit SUBCUT BID 03/28/23 06/05/24 unit/mL (3 mL) subcutaneous pen (Novolin N FlexPen) hydrochlorothiazide 50 mg tablet 100 mg PO TID 06/27/23 06/05/24 venlafaxine 75 mg tablet 75 mg PO DAILY 06/27/23 06/05/24 clonidine HCl 0.1 mg tablet 0.05 mg PO BID 04/25/24 06/05/24 Previous Rx's Medication Instructions Recorded Diabetic shoes with inserts #1 ea 10/05/22 Diabetic Shoes with 3 pairs of #1 ea 02/09/23 Inserts ammonium lactate 12 % topical cream See Rx Instructions .Route 04/19/23 .COMPLEX #140 grams 6 pairs of compression socks #1 ea 04/21/23 Diabetic shoes #1 ea 03/06/24 tramadol 50 mg tablet 50 mg PO TID PRN pain #90 tabs 04/18/24 Allergies Allergy/AdvReac Type Severity Reaction Status Date / Time No Known Allergies Allergy Verified 08/02/24 16:21 Review of Systems 2 Narrative: Constitutional symptoms: Negative except as documented in HPI. Skin symptoms: Negative except as documented in HPI. Eye symptoms: Negative except as documented in HPI. ENMT symptoms: Negative except as documented in HPI. Respiratory symptoms: Negative except as documented in HPI. Cardiovascular symptoms: Negative except as documented in HPI. Gastrointestinal symptoms: Negative except as documented in HPI. Genitourinary symptoms: Negative except as documented in HPI. Musculoskeletal symptoms: Negative except as documented in HPI. Neurologic symptoms: Negative except as documented in HPI. Psychiatric symptoms: Negative except as documented in HPI. Endocrine symptoms: Negative except as documented in HPI. PFSH ED 2 PFSH: Medical History Thyroid condition Diabetes High cholesterol Hypertension History of colon polyps Surgical History History of esophagogastroduodenoscopy (EGD) History of back surgery 2009 History of right hip replacement 2014 Family History Other Cancer Diabetes Denies family history of CAD (coronary artery disease) Dementia Chronic kidney disease (CKD) Stroke Social History Smoking and tobacco/nicotine status: former use of tobacco/nicotine Second hand smoke exposure: No Alcohol intake: current Alcohol intake frequency: holidays/special occasions only Alcohol type: beer Substance/Drug Use: never Lives independently: Yes Household members: spouse, children and other Marital status: Course 2 Vital Signs: Vital signs: Vital Signs Temperature 98.0 F 08/02/24 16:14 Pulse Rate 65 08/02/24 18:30 Respiratory Rate 18 08/02/24 18:30 Blood Pressure 134/65 08/02/24 18:30 Pulse Oximetry 98 08/02/24 18:30 Oxygen Delivery Me thod Room Air 08/02/24 18:00 MDM - Nausea/Vomiting/Diarrhea Medical Decision Making Care signed out to Dr. Sharma at change of shift. See final notes for diagnosis and disposition. Lab review. No labs to compare to. Lab work was reviewed and interpreted by myself emergency room physician. Patient has an elevation his BUN/creatinine at 29 and 2.0. Unclear what his baseline is but likely this is above his baseline. He has received 2 L of fluids. His blood pressure has improved greatly. No leukocytosis. Reexamination: Patient's blood pressure has improved considerably. He feels much better. No dizziness or malaise when he stands or sits. No increased work of breathing. Blood pressures in the 130s and his heart rates come from 1 15-65 with fluids. This seems to be strictly dehydration from diarrhea. This could have been a gastroenteritis but it also could have been related to his Ozempic. He needs to follow-up with his primary. However his [place] primary doctor has left. Assessment and plan: Dehydration Diarrhea Hypertension Renal insufficiency ?2 L normal saline bolus and some Pepcid in the emergency room - Discharged home - Discussed plan with patient. Answered any questions. - Evaluation and treatment of this problem were appropriate in the emergency setting. Lab Data 08/02/24 16:32 08/02/24 16:32 Laboratory Results WBC 5.03 10^3/uL (3.29-11.43) 08/02/24 16:32 RBC 3.65 10^6/uL (3.85-5.65) L 08/02/24 16:32 Hgb 10.80 g/dL (11.27-16.99) L 08/02/24 16:32 Hct 32.9 % (37-53) L 08/02/24 16:32 MCV 90.1 fl (82-101) 08/02/24 16:32 MCH 29.6 pg (27-33) 08/02/24 16:32 MCHC 32.8 g/dL (30-55) 08/02/24 16:32 RDW 14.9 % (12.1-15.1) 08/02/24 16:32 Plt Count 197 10^3/cmm (157-399) 08/02/24 16:32 MPV 12.0 fL (7.4-10.4) H 08/02/24 16:32 Neut % (Auto) 73.4 % 08/02/24 16:32 Lymph % (Auto) 13.5 % 08/02/24 16:32 [place] % (Auto) 8.5 % 08/02/24 16:32 Eos % (Auto) 3.8 % 08/02/24 16:32 Baso % (Auto) 0.6 % 08/02/24 16:32 Neut # (Auto) 3.69 10^3/uL (1.8-7.7) 08/02/24 16:32 Lymph # (Auto) 0.7 10^3/uL (0.8-4.8) L 08/02/24 16:32 [place] # (Auto) 0.4 10^3/uL (0.2-0.9) 08/02/24 16:32 Eos # (Auto) 0.2 10^3/uL (0.0-0.8) 08/02/24 16:32 Baso # (Auto) 0.0 10^3/uL (0.0-0.1) 08/02/24 16:32 Nucleated RBC % (auto) 0 % 08/02/24 16:32 Nucleated RBCs # 0.0 /100WBC 08/02/24 16:32 Sodium 140 mmol/L (136-145) 08/02/24 16:32 Potassium 4.4 mmol/L (3.5-5.1) 08/02/24 16:32 Chloride 100 mmol/L (98-107) 08/02/24 16:32 Carbon Dioxide 24 mmol/L (22-29) 08/02/24 16:32 Anion Gap 20.4 (5-19) H 08/02/24 16:32 BUN 29 mg/dL (8-23) H 08/02/24 16:32 Creatinine 2.0 mg/dL (0.7-1.2) H 08/02/24 16:32 GFR Calculation 33.4 mL/min (90-130) L 08/02/24 16:32 Glucose 168 mg/dL (65-115) H 08/02/24 16:32 Calculated Osmolality 300 mOsm/kg (285-295) H 08/02/24 16:32 Calcium 9.5 mg/dL (8.5-10.5) 08/02/24 16:32 Total Bilirubin 0.3 mg/dL (0.15-1.2) 08/02/24 16:32 AST 28 U/L (0-40) 08/02/24 16:32 ALT 19 U/L (0-41) 08/02/24 16:32 Alkaline Phosphatase 76 U/L (40-130) 08/02/24 16:32 Total Protein 6.6 g/dL (6.6-8.7) 08/02/24 16:32 Albumin 4.2 g/dL (3.5-5.2) 08/02/24 16:32 Globulin 2.4 g/dL (1.3-4.6) 08/02/24 16:32 Lipase 37 U/L (13-60) 08/02/24 16:32 Serum Ketones Negative (Negative) 08/02/24 16:08 Discharge Plan Discharge Patient Disposition: Home Clinical Impression: Dehydration, Diarrhea, Acute renal insufficiency, Hypotension Condition: Stable Prescriptions: No Action methylprednisolone acetate [Depo-Medrol] 40 mg/mL suspension 40 mg Infiltration ONCE Qty: 1 0RF (DME) Diabetic shoes with inserts See Rx Instructions .Route .MEDSUPPLY Qty: 1 0RF Rx Instructions: As directed hydrocodone-acetaminophen 5-325 mg tablet 1 tab PO Q6H PRN bacitracin 500 unit/gram ointment 1 applic topical TID clonidine HCl 0.1 mg tablet 0.05 mg PO BID acetaminophen 325 mg capsule 325 mg PO QID PRN (Reason: Pain) amlodipine 10 mg tablet 10 mg PO DAILY aspirin 81 mg tablet,chewable 81 mg PO DAILY Hold Instructions: Resume on 03/24/22. atorvastatin 80 mg tablet 80 mg PO DAILY cholecalciferol (vitamin D3) 75 mcg (3,000 unit) tablet 75 mcg PO DAILY cyanocobalamin (vitamin B-12) 500 mcg tablet 500 mcg PO DAILY gabapentin 300 mg capsule 600 mg PO TID hydrocortisone 2.5 % cream 1 applic topical TID PRN (Reason: unknown) hydrophilic cream Cream 1 applic topical DAILY PRN (Reason: unknown) levothyroxine 200 mcg capsule 200 mcg PO DAILY losartan 100 mg tablet 100 mg PO DAILY metformin 1,000 mg tablet 1,000 mg PO BID methocarbamol 500 mg tablet 500 mg PO TID omeprazole 20 mg capsule,delayed release(DR/EC) 20 mg PO DAILY pioglitazone 30 mg tablet 30 mg PO DAILY Novolin N FlexPen 100 unit/mL (3 mL) insulin pen 75 unit SUBCUT BID hydrochlorothiazide 50 mg tablet 100 mg PO TID bupivacaine (PF) 0.25 % (2.5 mg/mL) solution 1 ml intra-articular ONCE Qty: 1 0RF methylprednisolone acetate [Depo-Medrol] 40 mg/mL suspension 40 mg Infiltration ONCE Qty: 1 0RF lidocaine (PF) 20 mg/mL (2 %) solution 20 mg Infiltration ONCE Qty: 1 0RF (DME) 6 pairs of compression socks See Rx Instructions .Route .MEDSUPPLY Qty: 1 0RF Rx Instructions: As directed to the [place] venlafaxine 75 mg tablet 75 mg PO DAILY (DME) Diabetic shoes See Rx Instructions .ROUTE .MEDSUPPLY Qty: 1 0RF Rx Instructions: With 3 pairs of inserts tramadol 50 mg tablet 50 mg PO TID PRN (Reason: pain) Qty: 90 2RF Rx Instructions: Not to be used with other opioids, benzodiazepines, or alcohol (DME) Diabetic Shoes with 3 pairs of Custom Inserts See Rx Instructions .Route .MEDSUPPLY Qty: 1 0RF Rx Instructions: As directed by [facility]- [place] patient ammonium lactate 12 % cream See Rx Instructions .ROUTE .COMPLEX Qty: 140 5RF Dose Instruction: APPLY TO AFFECTED AREA(S) ONCE A DAY FOR DRY SKIN. EXTERNAL USE ONLY. DO NOT APPLY TO RED, ITCHY, OR SORE SKIN. Rx Instructions: APPLY TO AFFECTED AREA(S) ONCE A DAY FOR DRY SKIN. EXTERNAL USE ONLY. DO NOT APPLY TO RED, ITCHY, OR SORE SKIN. Discharge Orders: Discharge ED (Routine); Ordered 08/02/24 Ordered By: Echo Sharma Referrals: Flako Carreno DO [Primary Care Provider] - Discharge Diet: Usual diet Discharge Activity: Increase activity as tolerated Patient Instructions: Dehydration (ED) Activity Restrictions/Additional Instructions: Thank you for choosing [facility] for your healthcare needs today. Please realize this is an emergency room and that we are providing you with a medical screening exam and this may not be complete and all inclusive of all the testing and or work up that you may need to determine your ailment or severity of your illness. You have been screened and evaluated and felt safe for discharge. Health conditions do change or evolve sometimes and as such it is important that you follow up with your Primary Doctor to be re checked, 3-5 days is a general good time frame for follow up. You are always welcome to return to the ED for re assessment if your symptoms are worsening or you have new concerns Coding Level of Care Code ED Tar Distillation Supervisor for Sharon Sánchez
[2024-08-02] MEDS: pantoprazole 40 mg SDV 80 MG IVP (18:31)
[2024-08-02] MEDS: sodium chloride 0.9% 1,000 ML 999 ML IV ×2 (18:39→18:49)
--- NOTE | 2024-08-02 19:23 | PC.NURSE ---
Tova YOUNGBLOOD and this preceptor assumed care for patient at time of shift change from Melida YOUNGBLOOD.
== END 2024-08-02 20:26 | disposition home or self-care (01) ==
PROVIDERS: Emergency Medicine; Nurse Practitioner Family; Emergency Provider Emergency Medicine; PCP Emergency Medicine Emergency Medical Services
DX: I95.9 Hypotension, unspecified (principal); E86.0 Dehydration; R19.7 Diarrhea, unspecified; N28.9 Disorder of kidney and ureter, unspecified; Z79.82 Long term (current) use of aspirin; Z79.84 Long term (current) use of oral hypoglycemic drugs; Z79.4 Long term (current) use of insulin; E11.9 Type 2 diabetes mellitus without complications; I10 Essential (primary) hypertension; Z87.891 Personal history of nicotine dependence
CPT/HCPCS: 36415; 80053; 82009; 83690; 85025; 96361; 96374; 99284; J2470; J7030

== ENCOUNTER → 2024-09-11 09:55 | Outpatient (BNVA) | payer OTHER, SELFPAY | PROVIDERS: PCP Emergency Medicine Emergency Medical Services; Visit Provider Podiatrist Foot & Ankle Surgery | DX: R60.0 Localized edema (principal); E11.42 Type 2 diabetes mellitus with diabetic polyneuropathy; L60.3 Nail dystrophy; Z79.4 Long term (current) use of insulin; Z79.84 Long term (current) use of oral hypoglycemic drugs | CPT/HCPCS: 11721; 99213 ==

== ENCOUNTER → 2024-10-15 14:58 | Outpatient (BNVA) | payer OTHER, SELFPAY | PROVIDERS: PCP Emergency Medicine Emergency Medical Services; Visit Provider Internal Medicine Cardiovascular Disease | DX: I11.9 Hypertensive heart disease without heart failure (principal); E78.00 Pure hypercholesterolemia, unspecified; E11.9 Type 2 diabetes mellitus without complications; E66.01 Morbid (severe) obesity due to excess calories; Z87.891 Personal history of nicotine dependence; Z79.4 Long term (current) use of insulin | CPT/HCPCS: 99214 ==

== ENCOUNTER → 2024-11-23 10:01 | Outpatient (BNVA) | payer OTHER, SELFPAY | PROVIDERS: PCP Emergency Medicine Emergency Medical Services; Referring Provider Family Medicine; Visit Provider Specialist | DX: G56.03 Carpal tunnel syndrome, bilateral upper limbs (principal) | CPT/HCPCS: 95911 ==

== ENCOUNTER → 2024-12-11 10:09 | Outpatient (BNVA) | payer OTHER, SELFPAY | PROVIDERS: PCP Emergency Medicine Emergency Medical Services; Visit Provider Podiatrist Foot & Ankle Surgery | DX: R60.0 Localized edema (principal); E11.42 Type 2 diabetes mellitus with diabetic polyneuropathy; L60.3 Nail dystrophy; Z79.4 Long term (current) use of insulin; Z79.84 Long term (current) use of oral hypoglycemic drugs | CPT/HCPCS: 11721 ==

== ENCOUNTER → 2025-02-21 12:26 | Outpatient (BNVA) | payer OTHER, SELFPAY | PROVIDERS: PCP Emergency Medicine Emergency Medical Services; Visit Provider Podiatrist Foot & Ankle Surgery | DX: E11.42 Type 2 diabetes mellitus with diabetic polyneuropathy (principal); L60.3 Nail dystrophy; Z79.4 Long term (current) use of insulin; Z79.84 Long term (current) use of oral hypoglycemic drugs | CPT/HCPCS: 11721 ==

== ENCOUNTER → 2025-03-25 12:34 | Outpatient (BNVA) | payer OTHER, SELFPAY | PROVIDERS: PCP Emergency Medicine Emergency Medical Services; Visit Provider Anesthesiology Pain Medicine | DX: M48.062 Spinal stenosis, lumbar region with neurogenic claudication (principal); M54.9 Dorsalgia, unspecified; M43.26 Fusion of spine, lumbar region; M51.16 Intervertebral disc disorders with radiculopathy, lumbar region; M16.12 Unilateral primary osteoarthritis, left hip | CPT/HCPCS: 99214 ==

== ENCOUNTER → 2025-05-28 12:45 | Outpatient (BNVA) | payer OTHER, SELFPAY | PROVIDERS: PCP Emergency Medicine Emergency Medical Services; Visit Provider Podiatrist Foot & Ankle Surgery | DX: E11.42 Type 2 diabetes mellitus with diabetic polyneuropathy (principal); L60.3 Nail dystrophy; E11.8 Type 2 diabetes mellitus with unspecified complications; R60.0 Localized edema; Z79.4 Long term (current) use of insulin; Z79.84 Long term (current) use of oral hypoglycemic drugs | CPT/HCPCS: 11721 ==

== ENCOUNTER → 2025-06-03 13:12 | Outpatient (BNVA) | payer OTHER, SELFPAY | PROVIDERS: PCP Family Medicine; Visit Provider Anesthesiology Pain Medicine | DX: M48.062 Spinal stenosis, lumbar region with neurogenic claudication (principal); M54.9 Dorsalgia, unspecified; M43.26 Fusion of spine, lumbar region; M51.16 Intervertebral disc disorders with radiculopathy, lumbar region; M16.12 Unilateral primary osteoarthritis, left hip | CPT/HCPCS: 99214 ==

== ENCOUNTER → 2025-07-08 14:20 | Outpatient (BNVA) | payer OTHER, SELFPAY | PROVIDERS: PCP Family Medicine; Visit Provider Anesthesiology Pain Medicine | DX: M79.18 Myalgia, other site (principal); M48.062 Spinal stenosis, lumbar region with neurogenic claudication; M54.9 Dorsalgia, unspecified; M43.26 Fusion of spine, lumbar region; M51.16 Intervertebral disc disorders with radiculopathy, lumbar region; M16.12 Unilateral primary osteoarthritis, left hip | CPT/HCPCS: 20553; 99214; J1010; J3490 ==

== ENCOUNTER → 2025-09-03 13:24 | Outpatient (BNVA) | payer OTHER, SELFPAY | PROVIDERS: PCP Family Medicine; Visit Provider Podiatrist Foot & Ankle Surgery | DX: E11.42 Type 2 diabetes mellitus with diabetic polyneuropathy (principal); L60.3 Nail dystrophy; L84 Corns and callosities; R60.0 Localized edema; Z79.4 Long term (current) use of insulin; Z79.84 Long term (current) use of oral hypoglycemic drugs | CPT/HCPCS: 11056; 11721 ==

== ENCOUNTER → 2025-10-07 13:37 | Outpatient (BNVA) | payer OTHER, SELFPAY | PROVIDERS: PCP Family Medicine; Visit Provider Anesthesiology Pain Medicine | DX: M48.062 Spinal stenosis, lumbar region with neurogenic claudication (principal); M51.16 Intervertebral disc disorders with radiculopathy, lumbar region; M16.12 Unilateral primary osteoarthritis, left hip; M43.26 Fusion of spine, lumbar region | CPT/HCPCS: 99213 ==